=== PATIENT | male | born 1960 | race Caucasian/White ===

== ENCOUNTER → 2016-09-23 | Outpatient (CLI) | payer OTHER ==
--- NOTE | 2016-09-24 06:08 | MR ---
EXAMINATION TYPE: MR lumbar spine wo/w con DATE OF EXAM: 09/23/2016 8:18 PM COMPARISON: Lumbar spine x-ray June 26, 2016. HISTORY: LBP, rt sciatica, hx surgery 2003 TECHNIQUE: Multiplanar, multisequence images of the lumbar spine is performed without and with IV contrast, util izing 15 mL intravenous MultiHance FINDINGS: Sagittal images of the lumbar spine show vertebral body heights to appear satisfactory. Str aightened alignment is redemonstrated. Multilevel disc desiccation is seen. There is mild disc space narrowing L4-L5 level. No large posterior disc herniations are seen on sagittal images. Increased sig nal posteriorly consistent with annular tear is noted at L2-L3 and L5-S1 levels. The conus medullaris is normal in position and signal ending at inferior L1 vertebral body level. Prominent hemangioma at right L3 vertebral body level is noted. No suspicious postcontrast enhancement is seen. There is mil d multilevel anterior spurring. Axial images show the T12-L1 and L1-L2 levels to appear within normal limits. Axial images at L2-L3 level show mild broad disc bulge with posterior annular tear. Spinal canal is p reserved and bilateral neural foramina are patent. Axial images at L3-L4 level show mild to moderate broad disc bulge with left foraminal disc protrusio n component, there is minimal effacement of the anterior thecal sac with moderate left-sided anterior inferior neural foraminal narrowing encroaching on left L3 nerve on sagittal. Right-sided neural for amen is patent. Axial images at L4-L5 level show moderate broad disc bulge with right foraminal disc protrusion compo nent minimally effacing the anterior thecal sac and causing moderate right and mild left-sided anteri or inferior neural foraminal narrowing. Axial images at L5-S1 level show mild facet degenerative changes bilaterally. There is central disc p rotrusion seen with annular tear. Spinal canal is preserved. Bilateral neural foramina are patent. There is nonspecific 1.1 x 0.9 cm nodule posteriorly limb left adrenal gland on axial image 34. Malig nant etiology cannot be excluded. Consider further workup with adrenal protocol CT/MRI. IMPRESSION: Multilevel degenerative changes in the mid to lower lumbar spine as detailed above, atten tion to L3-L4 level where eccentric disc herniation encroaches on left L3 nerve. Consider follow up f or 1.1 cm left adrenal mass.
== END | disposition home or self-care (01) ==
LOC: RADMRIMAIN 19:11
PROVIDERS: ATTEND Internal Medicine
DX: M51.26 Other intervertebral disc displacement, lumbar region (principal); M47.816 Spondylosis without myelopathy or radiculopathy, lumbar region
CPT/HCPCS: 72158; A9577

== ENCOUNTER 2019-12-19 20:22 | Emergency (ER) | payer OTHER ==
[2019-12-19 20:30] VITALS: TEMP 98.2
--- NOTE | 2019-12-19 20:38 | ED ---
Male Urogenital HPI - General Chief complaint: Urogenital Stated complaint: LT flank pain Time Seen by Provider: 12/19/19 20:34 Source: patient Mode of arrival: ambulatory Limitations: no limitations - History of Present Illness Initial comments: 59-year-old male presenting today for chief complaint of left flank pain. Patient states that he has had left-sided abdominal pain that increases with coughing or sneezing. He states that ongoing for 3 days and he states that he has also had nausea associated with this pain. He states sharp, coming and go ing. Patient denies vomiting. Denies diarrhea. Denies fevers. Patient admits to urgency, slight dysuria that began today. Denies hx of kidney stones or noting hematuria. Patient has no additional complaints. Patient appears well on arrival,nontoxic in appearance. - Related Data Previous Rx's Medication Instructions Recorded HYDROcodone/APAP 5-325MG [Elida 1 tab PO Q6HR PRN #12 tab 04/04/16 5-325] Levofloxacin [Levaquin] 500 mg PO DAILY 10 Days tab 04/04/16 Ketorolac [Toradol] 10 mg PO Q8HR PRN 3 Days #9 tab 12/19/19 Ondansetron Odt [Zofran Odt] 4 mg PO Q8HR PRN 3 Days #9 tab 12/19/19 Tamsulosin [Flomax] 0.4 mg PO DAILY 3 Days #3 cap 12/19/19 Allergies Allergy/AdvReac Type Severity Reaction Status Date / Time No Known Allergies Allergy Verified 12/19/19 20:30 Review of Systems ROS Statement: Those systems with pertinent positive or pertinent negative responses have been documented in the HPI. ROS Other: All systems not noted in ROS Statement are negative. Past Medical History Past Medical History: Musculoskeletal Disorder Additional Past Medical History / Comment(s): L4 & L5 back injury, right leg nerve damage History of Any Multi-Drug Resistant Organisms: None Reported Past Surgical History: Back Surgery, Cholecystectomy Additional Past Surgical History / Comment(s): back surgery Past Psychological History: Anxiety, Panic Disorder Smoking Status: Current every day smoker Past Alcohol Use History: None Reported Past Drug Use History: Marijuana - Past Family History Mother Family Medical History: Congestive Heart Failure (CHF), Coronary Artery Disease (CAD) (Mother 76-year-old has history of CAD and CHF) Father Family Medical History: No Reported History (Father is 81-year-old has history of presbycusis.) Brother(s) Family Medical History: No Reported History (One brother no major medical problems) Daughter(s) Family Medical History: No Reported History (Patient has 5 daughters no major medical problems) Son(s) Family Medical History: No Reported History (Patient has 5 sons no major medical problems) General Exam - General Exam Comments Initial Comments: General: The patient is awake and alert, in no distress Eye: Pupils are equal, round and reactive to light, extra-ocular movements are intact. No nystagmus. There is normal conjunctiva bilaterally. No signs of icterus. Cardiovascular: There is a regular rate and rhythm. No murmur, rub or gallop is appreciated. Respiratory: Lungs are clear to auscultation, respirations are non-labored, breath sounds are equal. No wheezes, stridor, rales, or rhonchi. Gastrointestinal: Soft, non-distended, non-tender abdomen without masses or organomegaly noted. There is no rebound or guarding present. Musculoskeletal: Normal ROM, no tenderness. Strength 5/5. Sensation intact. Radial pulses equal bilaterally 2+. Neurological: A&O x 3. CN II-XII intact rgossly, There are no obvious motor or sensory deficits. Coordination appears grossly intact. Speech is normal. Skin: Skin is warm and dry and no rashes or lesions are noted. Psychiatric: Cooperative, appropriate mood & affect, normal judgment. Limitations: no limitations Course Vital Signs 12/19/19 12/19/19 20:25 21:43 Temperature 98.2 F Pulse Rate 94 78 Respiratory 16 18 Rate Blood Pressure 121/81 120/92 O2 Sat by Pulse 97 97 Oximetry Medical Decision Making - Medical Decision Making Labs reveal mild leukocytoss. RBC in urine. Patient case discussed with radiologist who states the stone is at right UVJ but cannto rule out a left sided stone that has already passed into bladder. Patient complained of some dysuria. Patient has no sign f obstruction stone. No fevers no WBC in urine or nitrates concerning for infected stone. Pain relieved with toradol. At this tiem I feel patient pain most likely due to recently passed or in process of passing urolithiasis. Patient is stable he is agreeable to outpatient follow-up with urology he was given Flomax Toradol and Zofran. Patient's pain controlled emergency department he appears well nontoxic was discharged appearing well after discussing the case with Dr. Jacobson - Lab Data Result diagrams: 12/19/19 20:40 12/19/19 20:40 Lab Results 12/19/19 12/19/19 12/19/19 Range/Units 20:40 20:40 21:02 WBC 11.4 H (3.8-10.6) k/uL RBC 5.53 (4.30-5.90) m/uL Hgb 16.8 (13.0-17.5) gm/dL Hct 51.5 (39.0-53.0) % MCV 93.0 (80.0-100.0) fL MCH 30.4 (25.0-35.0) pg MCHC 32.7 (31.0-37.0) g/dL RDW 13.1 (11.5-15.5) % Plt Count 287 (150-450) k/uL Neutrophils % 62 % Lymphocytes % 27 % Monocytes % 4 % Eosinophils % 5 % Basophils % 1 % Neutrophils # 7.1 (1.3-7.7) k/uL Lymphocytes # 3.1 (1.0-4.8) k/uL Monocytes # 0.5 (0-1.0) k/uL Eosinophils # 0.5 (0-0.7) k/uL Basophils # 0.1 (0-0.2) k/uL Sodium 136 L (137-145) mmol/L Potassium 4.2 (3.5-5.1) mmol/L Chloride 103 (98-107) mmol/L Carbon Dioxide 26 (22-30) mmol/L Anion Gap 7 mmol/L BUN 9 (9-20) mg/dL Creatinine 0.84 (0.66-1.25) mg/dL Est GFR (CKD-EPI)AfAm >90 (>60 ml/min/1.73 sqM) Est GFR (CKD-EPI)NonAf >90 (>60 ml/min/1.73 sqM) Glucose 122 H (74-99) mg/dL Calcium 9.1 (8.4-10.2) mg/dL Total Bilirubin 0.7 (0.2-1.3) mg/dL AST 22 (17-59) U/L ALT 15 (4-49) U/L Alkaline Phosphatase 100 (38-126) U/L Total Protein 7.1 (6.3-8.2) g/dL Albumin 4.1 (3.5-5.0) g/dL Urine Color Yellow Urine Appearance Clear (Clear) Urine pH 7.0 (5.0-8.0) Ur Specific [place] 1.005 (1.001-1.035) Urine Protein Negative (Negative) Urine Glucose (UA) Negative (Negative) Urine Ketones Negative (Negative) Urine Blood Moderate (Negative) Urine Nitrite Negative (Negative) Urine Bilirubin Negative (Negative) Urine Urobilinogen <2.0 (<2.0) mg/dL Ur Leukocyte Esterase Negative (Negative) Urine RBC 9 H (0-5) /hpf Ur Squamous Epith Cells <1 (0-4) /hpf Disposition Clinical Impression: Kidney stone, Hematuria, Dysuria, Urolithiasis Disposition: HOME SELF-CARE Condition: Good Instructions (If sedation given, give patient instructions): Ureteral Stones (ED) Additional Instructions: Please use medication as discussed. Please follow-up with urology in next week, 1-2 days see PCP. Please return to emergency room if the symptoms increase or worsen or for any other concerns. Prescriptions: Tamsulosin [Flomax] 0.4 mg PO DAILY 3 Days #3 cap Ketorolac [Toradol] 10 mg PO Q8HR PRN 3 Days #9 tab PRN Reason: Pain Ondansetron Odt [Zofran Odt] 4 mg PO Q8HR PRN 3 Days #9 tab PRN Reason: Nausea Is patient prescribed a controlled substance at d/c from ED?: No Referrals: None,Stated [Primary Care Provider] - 1-2 days Abel Burks MD [STAFF PHYSICIAN] - 1-2 days Time of Disposition: 21:29
--- NOTE | 2019-12-19 21:03 | CT ---
EXAMINATION TYPE: CT abdomen pelvis wo con DATE OF EXAM: 12/19/2019 HISTORY: Left flank pain. CT DLP: 617.8 mGycm. Automated Exposure Control for Dose Reduction was Utilized. TECHNIQUE: CT scan of the abdomen and pelvis is performed without oral or IV contrast. COMPARISON: NONE FINDINGS: Within the limitations of a non-contrast study, the following observations are made. LUNG BASES: No significant abnormality is appreciated. LIVER/GB: Cholecystectomy clips. Occasional hypodense round lesions favoring simple thin-walled cysts in the right hepatic lobe for reference axial image 34. PANCREAS: No significant abnormality is seen. SPLEEN: No significant abnormality is seen. ADRENALS: Low dense thickening to both adrenal glands favoring benign lipid rich hyperplasia.. KIDNEYS: No renal stones identified bilaterally. There is however 2 mm calculus at right UVJ axial im age 89 causing minimal right-sided hydronephrosis. Some cortical thinning both kidneys consistent wi th product of chronic medical renal disease. BOWEL: Incidental normal-appearing appendix from base of cecum in the right pelvis. Scattered colonic diverticular change with Diverticular change in the left and sigmoid colon without CT evidence for a cute diverticulitis. GENITAL ORGANS: Enlarged prostate gland consistent with BPH central calcifications. LYMPH NODES: No greater than 1cm abdominal or pelvic lymph nodes are appreciated. OSSEOUS STRUCTURES: Disc herniation L4-L5 level effaces the anterior thecal sac. OTHER: No significant additional abnormality is seen. IMPRESSION: There is 2 mm calculus at right UVJ causing minimal right-sided hydronephrosis.
[2019-12-19 21:07] LABS: Carbon Dioxide 26 mmol/L (22-30); Chloride 103 mmol/L (98-107); Glucose 122 mg/dL (74-99); Potassium 4.2 mmol/L (3.5-5.1); Sodium 136 mmol/L (137-145)
[2019-12-19 21:08] LABS: ALT 15 U/L (4-49); AST 22 U/L (17-59); African American GFR (CKD) >90 (>60 ml/min/1.73 sqM); Albumin 4.1 g/dL (3.5-5.0); Alkaline Phosphatase 100 U/L (38-126); Anion Gap 7 mmol/L; Basophils # (A) 0.1 k/uL (0-0.2); Basophils % (A) 1 %; Blood Urea Nitrogen 9 mg/dL (9-20); Calcium 9.1 mg/dL (8.4-10.2); Eosinophils # (A) 0.5 k/uL (0-0.7); Eosinophils % (A) 5 %; HCT 51.5 % (39.0-53.0); HGB 16.8 gm/dL (13.0-17.5); Lymphocytes # (A) 3.1 k/uL (1.0-4.8); Lymphocytes % (A) 27 %; MCH 30.4 pg (25.0-35.0); MCHC 32.7 g/dL (31.0-37.0); Mean Platelet Volume 7.4; Monocytes # (A) 0.5 k/uL (0-1.0); Monocytes % (A) 4 %; Neutrophils # (A) 7.1 k/uL (1.3-7.7); Neutrophils % (A) 62 %; Non-African American GFR(CKD) >90 (>60 ml/min/1.73 sqM); Platelet Count 287 k/uL (150-450); RBC 5.53 m/uL (4.30-5.90); RDW 13.1 % (11.5-15.5); Total Bilirubin 0.7 mg/dL (0.2-1.3); Total Protein 7.1 g/dL (6.3-8.2); WBC 11.4 k/uL (3.8-10.6)
[2019-12-19] MEDS ORDERED: KETOROLAC 30 MG/ML 1 ML VIAL IVP STA (21:12)
[2019-12-19 21:21] LABS: Appearance,Urine Clear (Clear); Color,Urine Yellow; Protein,Urine Negative (Negative); Specific Gravity,Urine 1.005 (1.001-1.035)
[2019-12-19 21:22] LABS: Bilirubin,Urine Negative (Negative); Blood,Urine Moderate (Negative); Glucose,Urine (UA) Negative (Negative); Ketones,Urine Negative (Negative); Leukocyte Esterase,Urine Negative (Negative); Nitrite,Urine Negative (Negative); Urobilinogen,Urine <2.0 mg/dL (<2.0)
[2019-12-19 21:23] LABS: RBC,Urine 9 /hpf (0-5); Squamous Epithelial Cell,Urine <1 /hpf (0-4)
[2019-12-19 21:47] VITALS: BP 120/92; PULSE 78; RESP 18
== END 2019-12-19 21:45 | disposition home or self-care (01) ==
LOC: EC 20:22
DX: N13.2 Hydronephrosis with renal and ureteral calculous obstruction (principal); F17.200 Nicotine dependence, unspecified, uncomplicated; Z90.49 Acquired absence of other specified parts of digestive tract
CPT/HCPCS: 36415; 80053; 85025; 81001; 74176; 99284; 96374; J1885

== ENCOUNTER → 2022-01-17 | Outpatient (CLI) | payer OTHER ==
--- NOTE | 2022-01-17 09:55 | CTL ---
EXAMINATION TYPE: CT Low Dose Lung DATE OF EXAM ORDERED: 01/17/2022 HISTORY: . Lung cancer screening CT DLP: 80.[address] CTDI: 2.1 mGy Automated exposure control for dose reduction was used. SCREENING VISIT: COMPARISON: TECHNIQUE: Low dose computed tomography scan was performed through the chest at 1 mm thick sections a nd reconstructed images in multiple planes at 1 mm and [address] DIAGNOSTIC QUALITY: Satisfactory FINDINGS: LUNG NODULES: None. LUNGS: COPD: Severity: Mild Fibrosis: Severity: None Lymph nodes: None Other findings: Right Minor fissure intrafissural lymph node series 4 image 180 and image 224 in the right major fissure. RIGHT PLEURAL SPACE: Effusion: None Calcification: None Thickening: None Pneumothorax: None LEFT PLEURAL SPACE: Effusion: None Calcification: None Thickening: None Pneumothorax: None HEART: Heart Size: Normal Coronary Calcification: None Pericardial Effusion: None OTHER FINDINGS: Upper abdomen: Hepatic cysts, correlate cystectomy clips. Bony thorax: None Supraclavicular region: None Other: None IMPRESSION: 1. No clinically significant pulmonary nodules. 2. Mild COPD. CT LUNG RAD AND CT CHEST RECOMMENDATION: Lung-Rad 1 Negative: Continue annual screening with LDCT in 12 months. S Modifier (other clinically significant findings): None
== END | disposition home or self-care (01) ==
LOC: RADCTMAIN 09:14
PROVIDERS: ATTEND Internal Medicine
DX: Z12.2 Encounter for screening for malignant neoplasm of respiratory organs (principal); Z87.891 Personal history of nicotine dependence
CPT/HCPCS: 71271

== ENCOUNTER → 2022-09-18 | Outpatient (CLI) | payer OTHER ==
--- NOTE | 2022-09-18 10:15 | XR ---
EXAMINATION TYPE: XR knee 4V RT DATE OF EXAM: 09/18/2022 CLINICAL HISTORY: Shooting pain after injury TECHNIQUE: Three views of the right knee are obtained. Fourth sunrise view. COMPARISON: None. FINDINGS: There is no acute fracture/dislocation evident in right knee. Mild to moderate tricompartm ent joint space loss. No significant spurring. Patellar articulation is satisfactory on the sunrise view. Some edema in the posterior popliteal region could reflect product of ruptured Arboleda's cyst. Th is could be better evaluated with MRI if desired. IMPRESSION: As above.
== END | disposition home or self-care (01) ==
LOC: RADXRMAIN 09:35
PROVIDERS: ATTEND Internal Medicine
DX: M25.561 Pain in right knee (principal)

== ENCOUNTER → 2023-03-18 | Outpatient (CLI) | payer OTHER ==
--- NOTE | 2023-03-18 08:56 | CTL ---
EXAMINATION TYPE: CT Low Dose Lung DATE OF EXAM ORDERED: 03/18/2023 HISTORY:. Lung cancer screening CT DLP: 96.[address] CTDI: 2.4 mGy Automated exposure control for dose reduction was used. COMPARISON: 01/17/2022 TECHNIQUE: Low dose computed tomography scan was performed through the chest at 1 mm thick sections a nd reconstructed images in multiple planes at 1 mm and [address] DIAGNOSTIC QUALITY: Satisfactory FINDINGS: There is a stable 6.3 mm nodule adjacent to the minor fissure on the right. No new or suspicious lung nodules or masses are seen. There is mild emphysematous changes. There is no airspace consolidation or abnormal interstitial dens ity. There is no pleural effusion pleural thickening or pneumothorax. The great vessels the chest are normal there is no mediastinal, hilar or axillary adenopathy Limited scanning the upper abdomen reveal stable small low density lesions within the liver, most likely repr esenting small hemangiomas or cysts. There are surgical absence of the gallbladder. No focal osseous lesions are seen. IMPRESSION: 1. Lung RADS category 2 benign. Stable right middle lobe nodule associated with the minor fissure. 2. Continue routine screening yearly intervals. 3. Mild emphysematous changes. 4. No acute cardiopulmonary disease. CT LUNG RAD AND CT CHEST RECOMMENDATION:
== END | disposition home or self-care (01) ==
LOC: RADCTMAIN 08:02
PROVIDERS: ATTEND Internal Medicine
DX: Z12.2 Encounter for screening for malignant neoplasm of respiratory organs (principal); J43.9 Emphysema, unspecified; R91.1 Solitary pulmonary nodule; F17.210 Nicotine dependence, cigarettes, uncomplicated
CPT/HCPCS: 71271

== ENCOUNTER → 2024-03-05 | Outpatient (CLI) | payer OTHER ==
--- NOTE | 2024-03-05 10:30 | US ---
EXAMINATION TYPE: US bladder DATE OF EXAM: 03/05/2024 COMPARISON: NONE CLINICAL INDICATION: Male, 63 years old with history of N40.0 BPH; Patient feels urgency to void but cannot void when he attempts, burning sensation in his penis, no known infection, BPH TECHNIQUE: Multiple sonographic images of the bladder are obtained. FINDINGS: EXAM MEASUREMENTS: Post Void Residual Volume: Patient attempted but was unable to void. He states he feels like he has to void but can't. This happens to him daily. IMPRESSION: Patient unable to void. Otherwise unremarkable urinary bladder.
== END | disposition home or self-care (01) ==
LOC: RADUSWWP 10:05
PROVIDERS: ATTEND Internal Medicine
DX: N40.0 Benign prostatic hyperplasia without lower urinary tract symptoms
CPT/HCPCS: 76857

== ENCOUNTER → 2024-03-29 | Outpatient (CLI) | payer OTHER ==
--- NOTE | 2024-03-29 10:13 | CTL ---
EXAMINATION TYPE: CT Low Dose Lung DATE OF EXAM ORDERED: 03/29/2024 HISTORY: . Low Dose CT Lung Screening CT DLP: [address]DI: 2.22 mGy IV CONTRAST USED: None. SCREENING VISIT: First visit COMPARISON: 03/18/2023 TECHNIQUE: Low dose computed tomography scan was performed through the chest at 1 millimeter thick se ctions and reconstructed images in the coronal plane at [address] DIAGNOSTIC QUALITY: Satisfactory FINDINGS: LUNG NODULES: Stable 6 mm pulmonary nodule right middle lobe along the minor fissure. See image 199. No additional nodules present. LUNGS: COPD: Severity: Mild Fibrosis: Severity:None Lymph nodes: None Other findings: None RIGHT PLEURAL SPACE: Effusion: None Calcification: None Thickening: None Pneumothorax: None LEFT PLEURAL SPACE: Effusion: None Calcification: None Thickening: None Pneumothorax: None HEART: Heart Size: Mildly enlarged Coronary calcification: Mild Pericardial effusion: None OTHER FINDINGS: Upper abdomen: No significant abnormality Bony thorax: Degenerative changes Supraclavicular region: No significant abnormalityOther: No significant abnormalityI IMPRESSION: Stable benign-appearing 6 mm right middle lobe pulmonary nodule. FOLLOW UP CT CHEST RECOMMENDATION: Follow-up screening in one year CT LUNG RAD: LUNG RAD CATEGORY 2 benign appearance and/or behavior [facility], , 03/29/2024 10:11 AM
== END | disposition home or self-care (01) ==
LOC: RADCTMAIN 08:45
PROVIDERS: ATTEND Internal Medicine
DX: F17.200 Nicotine dependence, unspecified, uncomplicated
CPT/HCPCS: 71271

== ENCOUNTER → 2024-11-10 | Outpatient (CLI) | payer OTHER ==
--- NOTE | 2024-11-10 09:40 | XR ---
EXAMINATION TYPE: XR lumbar spine 3V, XR knee complete 3 views bilateral DATE OF EXAM: 11/10/2024 9:23 AM COMPARISON: Lumbar spine 06/26/2016 CLINICAL INDICATION: Male, 64 years old with history of M17.0 M51.369; PHH, pain FINDINGS: Lumbar spine: Cholecystectomy clips. 5 lumbar type vertebral bodies. Straightening of the normal lumbar lordosis. M oderate degenerative disc disease L4-L5 with narrowed disc, endplate sclerosis and spondylosis. Moder ate facet arthropathy mid to lower lumbar spine. Degenerative grade 1 retrolisthesis L4-L5. Changes p rogressed from 06/18/2016. Vertebral body heights are preserved. Bilateral knees: No acute fracture, subluxation, dislocation on either side. The extensor mechanisms appear intact. No significant knee joint effusions on either side. IMPRESSION: Lumbar spine: 1. Straightening of the normal lumbar lordosis could be positional or due to muscle spasm. 2. Moderate facet arthropathy mid to lower lumbar spine progressed from 2015 with new grade 1 retroli sthesis L4-L5. 3. Newly developed moderate degenerative disc disease L4-L5. 4. No vertebral compression collapse. Bilateral knees: 5. No significant joint effusions or acute osseous abnormality seen on either side. [facility], Workstation: [email or web address], 11/10/2024 9:37 AM
== END | disposition home or self-care (01) ==
LOC: RADXRMAIN 08:53
PROVIDERS: ATTEND Family Medicine
DX: M51.369 Other intervertebral disc degeneration, lumbar region without mention of lumbar back pain or lower extremity pain (principal); M17.0 Bilateral primary osteoarthritis of knee; M43.16 Spondylolisthesis, lumbar region; M47.816 Spondylosis without myelopathy or radiculopathy, lumbar region
CPT/HCPCS: 72100